=== PATIENT | male | born 1975 | race African-American/Black ===

== ENCOUNTER 2016-06-22 17:26 | Emergency (ER) | payer OTHER ==
[~2016-06-22] VITALS: Ht 190.5 cm; Wt 111.1 kg
[2016-06-22 17:36] VITALS: BP 146/62
[2016-06-22 17:49] VITALS: BP 146/62
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
== END 2016-06-22 18:55 ==
LOC: EDBD 17:26 → EMR 17:35
DX: S40.211A Abrasion of right shoulder, initial encounter (principal); Y35.813A Legal intervention involving manhandling, suspect injured, initial encounter; Y92.9 Unspecified place or not applicable
CPT/HCPCS: 99283